=== PATIENT | male | born 1965 | race Caucasian/White ===

== ENCOUNTER 2017-11-08 13:00 | Inpatient (IN) | payer BC ==
[~2017-11-08] VITALS: Ht 175.3 cm; Wt 77.1 kg
[2017-11-08 13:08] VITALS: Ht 175.3 cm; Wt 77.1 kg
[2017-11-08 13:59] LABS: CARBON DIOXIDE 28.7 mmol/L (21-32); CHLORIDE SERUM 102 mmol/L (98-107); CREATININE SERUM 0.9 mg/dL (0.7-1.3); GFR1 > 60 mL/min; GLUCOSE SERUM 95 mg/dL (74-106); POTASSIUM SERUM 3.5 mmol/L (3.5-5.1); SODIUM SERUM 139 mmol/L (136-145)
[2017-11-08] MEDS ORDERED: TOPROL XL50 MG PO (16:55)
[2017-11-08] MEDS ORDERED: ZESTRIL40 MG PO (16:55)
[2017-11-08 17:08] LABS: BASOPHIL % 0.6 % (0-2); PLATELET COUNT 268 x10^3mcL (130-400); RED CELL DISTRIBUTION WIDTH 13.7 % (11.5-14.5)
[2017-11-08] MEDS ORDERED: CHLORTHALIDONE25 MG PO (17:19)
[2017-11-08 17:29] LABS: AMYLASE 65 U/L (25-115); LIPASE 180 IU/L (73-393); MAGNESIUM 2.2 mg/dL (1.8-2.4); PHOSPHOROUS 3.4 mg/dL (2.5-4.9)
[2017-11-08 17:30] LABS: CHOLESTEROL 223 mg/dL (<200); CHOLESTEROL/HDL RATIO 7.4; HDL CHOLESTEROL 30 mg/dL (40-60); TRIGLYCERIDES 537 mg/dL (<150)
[2017-11-08 17:34] VITALS: BP 214/144
[2017-11-08 17:34] LABS: FREE T4 0.92 ng/dL (0.76-1.46); FREE THYROXINE INDEX 2.6 ug/dL (1.4-4.5); T4(THYROXINE) 8.4 ug/dL (4.7-13.3)
[2017-11-08 17:55] LABS: T3 TOTAL 1.44 ng/mL
[2017-11-08 20:01] VITALS: BP 143/94
[2017-11-08 21:25] VITALS: BP 124/70
[2017-11-08 23:29] VITALS: BP 131/85
[2017-11-09] VITALS (10 sets, daily range): BP systolic 138–166; BP diastolic 66–111
[2017-11-09 06:01] LABS: BASOPHIL % 0.5 % (0-2); PLATELET COUNT 251 x10^3mcL (130-400); RED CELL DISTRIBUTION WIDTH 13.4 % (11.5-14.5)
[2017-11-09 06:21] LABS: ALKALINE PHOSPHATASE 52 U/L (46-116); ALT/SGPT 26 U/L (16-63); AST/SGOT 15 U/L (15-37); BILIRUBIN TOTAL 0.54 mg/dL (0.20-1.00); CALCIUM 8.6 mg/dL (8.5-10.1); CARBON DIOXIDE 25.8 mmol/L (21-32); CHLORIDE SERUM 107 mmol/L (98-107); CREATININE SERUM 0.9 mg/dL (0.7-1.3); GFR1 > 60 mL/min; GLUCOSE SERUM 93 mg/dL (74-106); MAGNESIUM 2.1 mg/dL (1.8-2.4); SODIUM SERUM 142 mmol/L (136-145); TOTAL PROTEIN, SERUM 6.6 g/dL (6.4-8.2)
[2017-11-09 06:22] LABS: ALBUMIN 3.3 g/dL (3.4-5.0)
[2017-11-09 09:33] LABS: microscopic required? NO
[2017-11-09 09:52] LABS: urine erythrocyte NEGATIVE (NEGATIVE)
[2017-11-09 10:34] LABS: AMPHETAMINE QUAL UR NONE DETECTED (NEG <=1000)
[2017-11-10 05:07] VITALS: BP 151/91
[2017-11-10 06:09] LABS: BASOPHIL % 0.4 % (0-2); PLATELET COUNT 267 x10^3mcL (130-400); RED CELL DISTRIBUTION WIDTH 13.7 % (11.5-14.5)
[2017-11-10 06:45] LABS: CARBON DIOXIDE 26.5 mmol/L (21-32); CHLORIDE SERUM 103 mmol/L (98-107); CREATININE SERUM 0.9 mg/dL (0.7-1.3); GFR1 > 60 mL/min; GLUCOSE SERUM 97 mg/dL (74-106); POTASSIUM SERUM 3.8 mmol/L (3.5-5.1); SODIUM SERUM 138 mmol/L (136-145)
[2017-11-10 09:20] VITALS: BP 142/70
[2017-11-10] MEDS ORDERED: TOPROL XL50 MG PO (09:26)
[2017-11-10 11:02] VITALS: BP 142/70
[2017-11-10 14:12] VITALS: BP 144/99
[2017-11-10] MEDS ORDERED: NIFEDICAL XL30 MG PO (14:13)
== END 2017-11-10 15:20 | disposition home or self-care (01) | DRG 305 ==
LOC: ED 13:00 → DU 16:18
PROVIDERS: Emergency Medicine; Family Medicine
DX: I16.0 Hypertensive urgency (principal); E44.1 Mild protein-calorie malnutrition; I10 Essential (primary) hypertension; F17.200 Nicotine dependence, unspecified, uncomplicated; E78.5 Hyperlipidemia, unspecified; G47.33 Obstructive sleep apnea (adult) (pediatric); Z91.14 Patient's other noncompliance with medication regimen
CPT/HCPCS: 83880; 84439; 99406; J0360; J3490; J7030; Q0092